=== PATIENT | female | born 1970 | race Caucasian/White ===

== ENCOUNTER 2018-06-28 10:55 | Day surgery (SDC) | payer OTHER ==
[2018-06-24 13:42] VITALS: BMI 22.8
[~2018-06-28 10:55] MED LIST: SODIUM CHLORIDE 0.9% 1,000 ML IV SCH
[2018-06-28 11:12] VITALS: RESP 16; TEMP 98
[2018-06-28 15:24] VITALS: BP 122/72; PULSE 82
--- NOTE | 2018-06-28 17:11 | P.PCN ---
Preoperative Diagnosis: Diagnosis Recurrent hypotension and dizzy spells near syncope Twelve-lead ECG shows sinus rhythm normal AL narrow QRS normal ST segments normal QT interval no delta waves no epsilon waves Tilt table test per protocol Baseline blood pressure 129/75 mmHg Baseline heart rate is 60 beats a minute patient was tilted upright at night was 70 per protocol there was no change in a heart rate of blood pressure and she was laid supine at the end of the procedure. No symptoms noted Impression Normal 12-lead ECG Number heart rate and blood pressure response to upright tilting
== END 2018-06-28 14:11 | disposition home or self-care (01) ==
LOC: CATHEP 10:55
PROVIDERS: ATTEND Internal Medicine Clinical Cardiac Electrophysiology
DX: I95.9 Hypotension, unspecified (principal); R55 Syncope and collapse; R42 Dizziness and giddiness; Z88.0 Allergy status to penicillin; Z91.048 Other nonmedicinal substance allergy status
CPT/HCPCS: 93660

== ENCOUNTER → 2019-03-31 | Outpatient (CLI) | payer OTHER ==
--- NOTE | 2019-03-31 13:59 | MM ---
Reason for exam: screening (asymptomatic). Baseline mammogram. Physical Findings: Nurse did not find any significant physical abnormalities on exam. MG Screening Mammo w CAD Bilateral CC and MLO view(s) were taken. The breast tissue is heterogeneously dense. This may lower the sensitivity of mammography. There are rounded left calcifications, only three grouped together at two sites. These do not fit criteria for a true group. No suspicious abnormality. These results were verbally communicated with the patient and result sheet given to the patient on 03/31/19. ASSESSMENT: Benign, BI-RAD 2 RECOMMENDATION: Routine screening mammogram of both breasts in 1 year.
[2019-03-31 14:57] LABS: HCT 42.2 % (34.0-46.0); MCH 28.4 pg (25.0-35.0); MCHC 33.1 g/dL (31.0-37.0); Platelet Count 348 k/uL (150-450); RBC 4.91 m/uL (3.80-5.40); RDW 14.5 % (11.5-15.5); WBC 8.7 k/uL (3.8-10.6)
[2019-03-31 15:06] LABS: African American GFR (CKD) >90 (>60 ml/min/1.73 sqM); Anion Gap 6 mmol/L; Blood Urea Nitrogen 8 mg/dL (7-17); Calcium 9.3 mg/dL (8.4-10.2); Carbon Dioxide 29 mmol/L (22-30); Chloride 102 mmol/L (98-107); Cholesterol 139 mg/dL (<200); Glucose 88 mg/dL (74-99); HDL Cholesterol 48 mg/dL (40-60); LDL Cholesterol,Calculated 71 mg/dL (0-99); Non-African American GFR(CKD) >90 (>60 ml/min/1.73 sqM); Potassium 4.2 mmol/L (3.5-5.1); Sodium 137 mmol/L (137-145); Triglycerides 101 mg/dL (<150)
== END | disposition home or self-care (01) ==
LOC: RADMAMWWP 12:41
PROVIDERS: ATTEND Internal Medicine
DX: Z12.31 Encounter for screening mammogram for malignant neoplasm of breast (principal); E78.5 Hyperlipidemia, unspecified; F33.0 Major depressive disorder, recurrent, mild
CPT/HCPCS: 77067; 80048; 80061; 82306; 85027